=== PATIENT | male | born 1950 | race American Indian/Alaskan Native ===

== ENCOUNTER 2016-05-29 15:36 | Emergency (ER) | payer MEDICAID, MEDICARE ==
[2016-05-29 17:20] LABS: Eosinophils % (Auto) 2.2 % (0.0-4.3)
[2016-05-29 17:33] LABS: Anion Gap 15 mmol/L; BUN/Creatinine Ratio 11.66; Blood Urea Nitrogen 21 mg/dL (9-20); Calcium 8.5 mg/dL (8.4-10.2); Carbon Dioxide 20 mmol/L (22-30); Chloride 107.3 mmol/L (98-107); Glucose 160 mg/dL (75-100); Sodium 138 mmol/L (137-145)
[2016-05-29 18:09] LABS: Hematocrit 37.4 % (35.5-45.6); Hemoglobin 11.8 gm/dl (11.8-15.2); Red Blood Count 4.63 M/mm3 (3.65-5.03); White Blood Count 6.6 K/mm3 (4.5-11.0)
[2016-05-29 18:10] LABS: Basophils % (Auto) 0.7 % (0.0-1.8); Mean Corpuscular HGB Conc 32 % (32-34); Mean Corpuscular Hemoglobin 26 pg (28-32); Mean Corpuscular Volume 81 fl (84-94); Platelet Count 170 K/mm3 (140-440); Red Cell Distribution Width 18.9 % (13.2-15.2)
[2016-05-29] MEDS ORDERED: APRESOLINE IV ONE (19:45)
--- NOTE | 2016-05-29 19:54 | Emergency Department Report ---
HPI - General Chief Complaint: High BP Time Seen by Provider: 05/29/16 19:34 - HPI HPI: This is a 65-year-old Afro[place] male presents to the emergency department, driving himself in to be seen, from the [facility] with complaint of elevated blood pressure. The patient was going to the department of [facility] to try and get his HIV medications changed but found out that he does not currently have Medicare and they could not do that for him. However as part of his workup he was found have a blood pressure with a systolic greater than 200 and was told to come to the emergency department to be seen. Patient admits to occasional blurry vision and intermittent headaches but denies any slurred speech, facial asymmetry or any other neurological deficits. The patient does have a history of CHF, HIV, hypertension, hepatitis C. The patient is on hydralazine, metoprolol and losartan says he takes compliantly including today. No recent travel or sick contacts at home. He does not have a primary care doctor at this time. ED Past Medical Hx - Past Medical History Previous Medical History?: Yes Hx Hypertension: Yes Hx Congestive Heart Failure: Yes Hx HIV: Yes Additional medical history: Hep C - Surgical History Past Surgical History?: Yes Hx Open Heart Surgery: Yes - Social History Smoking Status: Current Every Day Smoker Substance Use Type: None - Medications Home Medications: Home Medications Medication Instructions Recorded Confirmed Last Taken Type Aspirin [Adult Low Dose Aspirin EC] 81 mg PO 05/29/16 05/27/16 History Iron,Carbonyl/Vit C/Vit B12/FA 1 each PO 05/29/16 05/27/16 History [Iron 100 Plus Tablet] Losartan [Cozaar] 25 mg PO QDAY 05/29/16 05/29/16 05/27/16 History Metoprolol Tartrate [Lopressor] 50 mg PO 05/29/16 05/27/16 History Multivits,Ca,Min/Iron/FA/Lycop 1 each PO 05/29/16 05/27/16 History [Centrum Men's Tablet] hydrALAZINE [Apresoline] 25 mg PO Q8HR 05/29/16 05/29/16 05/27/16 History ED Review of Systems ROS: Stated complaint: HIGH BP Other details as noted in HPI Comment: All other systems reviewed and negative Constitutional: denies: chills, fever Eyes: vision change. denies: eye pain, eye discharge ENT: denies: ear pain, throat pain Respiratory: denies: cough, shortness of breath, wheezing Cardiovascular: denies: chest pain, palpitations Gastrointestinal: denies: abdominal pain, nausea, diarrhea Genitourinary: denies: urgency, dysuria Musculoskeletal: denies: back pain, joint swelling, arthralgia Skin: denies: rash, lesions Neurological: headache. denies: weakness, paresthesias, confusion Physical Exam - Physical Exam Vital Signs: Vital Signs 05/29/16 16:30 Temperature 98.2 F Pulse Rate 6 L Blood Pressure 199/96 O2 Sat by Pulse 96 Oximetry Physical Exam: GENERAL: The patient is well-developed well-nourished. HEENT: Normocephalic. Atraumatic. Extraocular motions are intact. Patient has moist mucous membranes. Pupils equal reactive to light bilaterally. Visual acuity: Both eyes 20/20, OD 20/20, OS 20/20 NECK: Supple. Trachea is midline. CHEST/LUNGS: Clear to auscultation. There is no respiratory distress noted. HEART/CARDIOVASCULAR: Regular. There is no tachycardia. There is no gallop rub or murmur. ABDOMEN: Abdomen is soft, nontender. Patient has normal bowel sounds. There is no abdominal distention. SKIN: There is no rash. There is no edema. There is no diaphoresis. NEURO: The patient is awake, alert, and oriented. The patient is cooperative. The patient has no focal neurologic deficits. The patient has normal speech. Cranial nerves II-12 grossly intact. No pronator drift. MUSCULOSKELETAL: There is no tenderness or deformity. There is no limitation range of motion. There is no evidence of acute injury. Muscle strength 5 out of 5 upper and lower extremities bilaterally. ED Course Vital Signs 05/29/16 16:30 Temperature 98.2 F Pulse Rate 6 L Blood Pressure 199/96 O2 Sat by Pulse 96 Oximetry ED Medical Decision Making - Lab Data Result diagrams: 05/29/16 17:02 05/29/16 17:02 - EKG Data -: EKG Interpreted by Me EKG shows normal: sinus rhythm, axis, intervals, QRS complexes, ST-T waves (T- wave inversions to the lateral leads) Rate: normal - EKG Data When compared to previous EKG there are: previous EKG unavailable Interpretation: other (T-wave inversions to the lateral leads, no ST elevation [place]) - Radiology Data Radiology results: report reviewed CT of the head does not show any acute process including no hemorrhage, mass, shift, diffuse edema or skull fracture. - Medical Decision Making 65-year-old male presents to the emergency department from the [facility] with very elevated blood pressure. Since patient had some complaints of a mild headache and blurry vision a CT of the head was done without contrast that did not show any bleed, shift, mass or any acute process. There are no focal, motor or sensory deficits and his cranial nerves are intact. Visual acuity was perfect. Breast the patient's labs are mostly unremarkable. There is some renal deficiency but the patient says he has a history of this. He was given a dose of hydralazine and his blood pressures come down to a more reasonable level. Patient appears safe for discharge home at this time. He has blood pressure medications to take and says that he will start using his [id number] BP cuff and keep a blood pressure log. He will be given referrals for local primary care doctors and clinics. He will return to the ER with any worsening of symptoms or any acute distress. - Differential Diagnosis brain bleed, TIA, hypertensive urgency, renal insufficiency Critical Care Time: No Critical care attestation.: If time is entered above; I have spent that time in minutes in the direct care of this critically ill patient, excluding procedure time. ED Disposition Clinical Impression: Hypertensive urgency, Blurry vision Disposition: DISCHARGED TO HOME OR SELFCARE Is pt being admited?: No Condition: Stable Instructions: Hypertension (ED), Blurred Vision (ED) Additional Instructions: Please follow-up with a primary care doctor in the next few days. I have also given you a referral for a local folder seamer, Dr. Fall, in case she wanted to follow-up regarding her vision. Try to stay away from foods that are high in salt and caffeinated products to help with her blood pressure. Continue with her blood pressure medications. Keep a blood pressure log. Return to the emergency department with any worsening of your symptoms or any acute distress. Referrals: CHUY BALTAZAR MD [Primary Care Provider] - 3-5 Days SREEKANTH PICHARDO MD [Staff Physician] - 3-5 Days ARIK FALL MD [Staff Physician] - 3-5 Days [facility] [Outside] - 3-5 Days Time of Disposition: 21:11
--- NOTE | 2016-05-29 20:13 | Cat Scan Report ---
FINAL REPORT PROCEDURE: CT HEAD/BRAIN WO CON TECHNIQUE: Computerized tomography of the head was performed without contrast material. HISTORY: MARCELINO, HTN, blurred vision COMPARISON: No prior studies are available for comparison. FINDINGS: No CT evidence of intracranial mass, hemorrhage, acute territorial infarction, or hydrocephalus. The intracranial arteries are symmetric in density. Calvarium is intact. Minimal left sphenoid sinus mucosal thickening. IMPRESSION: No CT evidence of acute intracranial abnormality
[2016-05-29 21:21] VITALS: BP 158/71
== END 2016-05-29 21:33 | disposition home or self-care (01) ==
LOC: ED 15:36
DX: I10 Essential (primary) hypertension (principal); H53.8 Other visual disturbances; I50.9 Heart failure, unspecified; Z21 Asymptomatic human immunodeficiency virus [HIV] infection status; F17.200 Nicotine dependence, unspecified, uncomplicated
CPT/HCPCS: 36415; 70450; 80048; 84484; 85025; 93005; 93010; 96374; 99285; J0360